=== PATIENT | female | born 1970 | race Caucasian/White ===

== ENCOUNTER → 2024-09-30 | Outpatient (REF) | payer BC ==
[2024-10-05 14:49] LABS: HPV APTIMA Not Detected (Not Detected)
== END ==
LOC: M PLALAB 09:30
PROVIDERS: ATTEND Advanced Practice Midwife
DX: Z12.4 Encounter for screening for malignant neoplasm of cervix (principal); R87.618 Other abnormal cytological findings on specimens from cervix uteri
CPT/HCPCS: 87624; G0123

== ENCOUNTER → 2024-09-30 | Outpatient (CLI) | payer BC ==
[2024-09-30 14:52] LABS: PROGESTERONE 0.21 NG/ML
[2024-09-30 14:53] LABS: FREE T4 1.11 NG/DL (0.89-1.76); LUTEINIZING HORMONE 36.8 mIU/ML
[2024-09-30 14:54] LABS: ESTRADIOL 23.5 PG/ML
[2024-10-06 21:17] LABS: TESTOSTERONE FREE (DIRECT) 1.0 pg/mL (0.1-6.4); TESTOSTERONE TOTAL FOR T&D 8.0 ng/dL (2-45)
== END ==
LOC: M PLALAB 09:41
PROVIDERS: ATTEND Advanced Practice Midwife
DX: N92.6 Irregular menstruation, unspecified (principal); N95.1 Menopausal and female climacteric states; R23.2 Flushing

== ENCOUNTER → 2024-10-20 | Outpatient (CLI) | payer BC | LOC: M RAD 13:50 | PROVIDERS: ATTEND Advanced Practice Midwife | DX: N92.6 Irregular menstruation, unspecified (principal); D25.1 Intramural leiomyoma of uterus ==

== ENCOUNTER → 2024-10-22 | Outpatient (REF) | payer BC | LOC: M PLALAB 16:08 | PROVIDERS: ATTEND Advanced Practice Midwife | DX: N84.1 Polyp of cervix uteri (principal); R87.619 Unspecified abnormal cytological findings in specimens from cervix uteri; N92.6 Irregular menstruation, unspecified ==

== ENCOUNTER → 2025-02-02 | Outpatient (CLI) | payer BC | LOC: M PLALAB 14:56 | PROVIDERS: ATTEND Advanced Practice Midwife | DX: N95.1 Menopausal and female climacteric states (principal); R68.82 Decreased libido ==